=== PATIENT | female | born 1985 | race Caucasian/White ===

== ENCOUNTER 2022-07-22 09:06 | Outpatient (CLI) | payer OTHER, SELFPAY ==
--- NOTE | ~2022-07-22 | MR_ITS ---
MRI of the left knee Clinical history: Pain Technique: Coronal proton density and proton density-weighted images, sagittal proton-density and T2 fat-sat images, and axial proton-density fat-saturated images were acquired. Findings: Anterior and posterior cruciate ligaments are intact. Medial collateral ligament and the la teral collateral ligament complex are intact. Popliteus tendon is intact. No definite medial or lateral meniscal tear identified. No definite high-grade chondral lesion identified. Bone marrow signals are unremarkable. No significa nt osteophyte formation identified. Extensor mechanism is intact. Minimal joint effusion present. No Overton's cyst. Impression: No significant abnormality identified. Reviewed, dictated and finalized at location . [facility] Impression: No significant abnormality identified.
--- NOTE | ~2022-07-22 | US_ITS ---
EXAMINATION: US pelvic complete w TV DATE: 07/22/2022 11:46 INDICATION: Ovarian cyst TECHNIQUE: Multiple transabdominal and endovaginal sonographic images of the pelvis were obtained. COMPARISON: None. FINDINGS: The uterus measures 10.9 x 7.4 x 4.9 cm. The endometrial complex measures 6 mm. The left ov jamal is not visualized however no left adnexal abnormality is seen. The right ovary measures 2.7 x 2.4 x 2.1 cm. There is normal vascular flow in the right ovary. There is no free fluid in the pelvis. IMPRESSION: 1. No definite ovarian cyst identified. Reviewed, dictated and finalized at location [facility]
== END 2022-07-22 09:07 | disposition home or self-care (01) ==
PROVIDERS: PCP Family Medicine; Visit Provider Family Medicine
DX: N83.202 Unspecified ovarian cyst, left side (principal)
CPT/HCPCS: 73721; 76830; 76856